=== PATIENT | female | born 2000 | race Caucasian/White ===

== ENCOUNTER 2025-04-02 08:18 | Emergency (ER) | payer OTHER, SELFPAY ==
[2025-04-02 08:27] VITALS: BP 115/65
[2025-04-02 08:42] VITALS: BP 102/83
--- NOTE | 2025-04-02 08:50 | ED.GENMED ---
History of Present Illness
General
Chief Complaint: Cardiac Symptoms
Source: patient
Time Seen by Provider: 04/02/25 08:38
History of Present Illness
History of Present Illness:
24-year-old female presents with palpitations. She has a history of palpitations. She is on metoprolol 50 mg at bedtime for this. 2 weeks ago she had a miscarriage. She recently restarted her control pill. She denies chest pain
lightheadedness shortness of breath leg swelling or calf pain. No complaints at this time
Past History
Past History
ED Past Medical History: GERD
ED Past Surgical History: None
Patient has exhibited threatening behavior?: No
PSI?: No
Phy Exam
Physical Exam
Physical Exam:
General: Well-appearing female no acute respiratory distress
HEENT: Normocephalic atraumatic
Heart: Regular rate and rhythm
Lungs: Clear no wheeze
Extremities: No cyanosis or edema
Course
Orders/Labs/Results
Orders:
Orders
04/02/25 08:19
ECG [Electrocardiogram (*1)] Urgent
Reason for Study: Palpitations
EKG- Treatment ONCE
04/02/25 09:15
Complete Blood Count/With Diff Urgent
Comprehensive Metabolic Panel Urgent
TSH Reflex To Free T4 Urgent
04/02/25 10:01
Acetaminophen [Tylenol] 500 mg .ROUTE .STK-MED ONE
04/02/25 10:02
Acetaminophen [Tylenol] 500 mg PO NOW STA
Abnormal Lab Results
04/02/25
09:15
WBC 4.1 L 10^3/uL
(4.8-10.8)
MCH 31.2 H pg
(27.0-31.0)
Monocytes % 10.1 H %
(1.7-9.3)
Chloride 111 H mmol/L
(98-107)
04/02/25 09:15
04/02/25 09:15
Vital Signs
Initial and Last Documented VS:
Initial Vital Signs
Temp Pulse Resp BP Pulse Ox
98.6 F 71 18 115/65 99
04/02/25 08:27 04/02/25 08:27 04/02/25 08:27 04/02/25 08:27 04/02/25 08:27
Last Documented Vital Signs
Temp Pulse Resp BP Pulse Ox
98.6 F 70 21 115/67 100
04/02/25 08:27 04/02/25 11:15 04/02/25 11:15 04/02/25 11:13 04/02/25 09:15
MDM/Problems Addressed
Differential Diagnosis Includes:
Palpitations. Consider arrhythmia versus PVC. She does have hyperthyroid issues. Will check thyroid level and blood count to evaluate for anemia. EKG shows sinus rhythm without any abnormal beats or arrhythmias. Patient is on the monitor.
*Pulse Oximetry
SaO2: 99
Oxygen Mode of Delivery: Room air
Patient hypoxic: no
*Critical Care Note
Total Time (30-74mins, 75-104mins- exclusive of procedures): Not Applicable
Update Note
Update Note:
No arrhythmias noted on monitor. Labs reviewed without significant finding. Patient has remained stable here. Patient did request joint cutter machine name for follow-up. 1 was given to her. No indication for admission. Stable for discharge
ED Attending Note
-
Portions of this chart may have been created with voice recognition software.� Occasional wrong word or��sound alike� substitutions may have occurred due to the inherent limitations of voice recognition software.
Discharge Plan
Departure
Patient Disposition: Home (Routine Discharge)
Date of Disposition: 04/02/25
Time of Disposition: 11:55
Patient with high blood pressure during this ER visit?: No
Discharge Problem:
Palpitations
Referrals:
Travon Garza MD [Active, Cardiology]
NONE,* [Family Provider, Internal Medicine]
Activity Restrictions/Additional Instructions:
Rest. Stay hydrated. Return here for worsening symptoms otherwise follow-up with your family doctor and/or joint cutter machine
Interventions
Interventions:
*Risk Screen - Suicide Last Done: 04/02/25 08:30
*General Assessment Last Done: 04/02/25 10:27
*Neglect/Abuse Screening Last Done: 04/02/25 08:30
*ED- Fall Risk Assessment Last Done: 04/02/25 10:27
*ED COVID-19 Vaccine History Last Done: 04/02/25 10:27
ED- Pulmonary Assessment Last Done: 04/02/25 10:13
ED- Cardiac Assessment Last Done: 04/02/25 10:13
Discharge Date and Time
Print Language: EMIRATI
[2025-04-02 09:00] VITALS: BP 107/72
[2025-04-02 09:24] LABS: Hematocrit 38.0 % (37.0-47.0); Hemoglobin 13.4 g/dL (12.0-16.0); Mean Corp Hgb Conc. 35.3 g/dL (33.0-37.0); Mean Corpuscular Volume 88.4 fL (81.0-99.0); Nucleated Red Blood Cells % 0 %; Platelet Count 213 10^3/uL (130-400); Red Cell Dist. Width 13.1 % (11.5-14.5)
[2025-04-02] MEDS: TYLENOL 500 MG PO (10:02)
[2025-04-02 10:04] LABS: ALT (SGPT) 13 U/L (0-35); AST (SGOT) 18 U/L (14-36); Albumin 4.4 g/dl (3.5-5.0); Alkaline Phosphatase 49 U/L (38-126); Blood Urea Nitrogen 13 mg/dl (7-17); Calcium 9.4 mg/dl (8.4-10.2); Carbon Dioxide 23 mmol/L (22-30); Chloride 111 mmol/L (98-107); Glucose 90 mg/dl (70-99); Potassium 4.2 mmol/L (3.5-5.1); Sodium 139 mmol/L (135-145); Total Protein 7.7 g/dl (6.3-8.2); eGFR > 60.00
[2025-04-02 11:11] VITALS: BP 115/67
[2025-04-02 11:13] VITALS: BP 115/67
[2025-04-02 11:44] VITALS: BP 114/66
== END 2025-04-02 12:05 | disposition home or self-care (01) ==
LOC: EMR 08:18
PROVIDERS: Physician Assistant; EMERGENCY PHYSICIAN Emergency Medicine
DX: R00.2 Palpitations (principal); K21.9 Gastro-esophageal reflux disease without esophagitis; E05.90 Thyrotoxicosis, unspecified without thyrotoxic crisis or storm; Z79.899 Other long term (current) drug therapy; Z98.890 Other specified postprocedural states; Z88.1 Allergy status to other antibiotic agents
CPT/HCPCS: 99283; 80053; 84443; 85025; 93005